=== PATIENT | female | born 1935 | race Caucasian/White ===

== ENCOUNTER 2021-03-07 18:56 | Emergency (ER) | payer MEDICARE | END 2021-03-07 22:19 | disposition home or self-care (01) | LOC: ER1 18:56 | DX: S20.211A Contusion of right front wall of thorax, initial encounter (principal); S40.011A Contusion of right shoulder, initial encounter; M19.012 Primary osteoarthritis, left shoulder; I10 Essential (primary) hypertension; W10.9XXA Fall (on) (from) unspecified stairs and steps, initial encounter; Y92.009 Unspecified place in unspecified non-institutional (private) residence as the place of occurrence of the external cause | CPT/HCPCS: 71045; 73030; 99283 ==